=== PATIENT | female | born 1965 | race Caucasian/White ===

== ENCOUNTER 2018-04-26 12:46 | Observation (INO) ==
[2018-04-26] MEDS ORDERED: Morphine Inj 4 MG/ML Vial IV.PUSH PRN ×2 (15:53)
[2018-04-26] MEDS: Heparin - SQ 10,000 UNITS/ML Vial SQ SCH (20:32)
[2018-04-26] MEDS: Sod Chloride 0.9% Inj 1,000 ML IV.CONT SCH (20:33)
[2018-04-26 21:50] VITALS: RESP 16
[2018-04-26 22:26] LABS: Creatine Kinase 34 U/L (26-192)
[2018-04-27 04:52] VITALS: BP 116/77; PULSE 80; TEMP 97.4; O2SAT 96
[2018-04-27] MEDS: Sod Chloride 0.9% Inj 1,000 ML IV.CONT SCH (07:02)
[2018-04-27 07:08] LABS: Baso # (Auto) 0.1 th/mm3 (0.0-0.2); Eos # (Auto) 0.1 th/mm3 (0.0-0.4); Eos % (Auto) 1.4 % (0.0-4.0); Hematocrit 35.4 % (35.0-46.0); Hemoglobin 11.6 gm/dL (11.6-15.3); Lymph # (Auto) 1.8 th/mm3 (1.0-4.8); Lymph % (Auto) 24.7 % (9.0-44.0); Mean Corpuscular HGB Conc 32.8 % (32.0-36.0); Mean Corpuscular Volume 88.3 fL (80.0-100.0); Mean Platelet Volume 7.8 fL (7.0-11.0); Mono # (Auto) 0.5 th/mm3 (0.0-0.9); Mono % (Auto) 6.2 % (0.0-8.0); Neut # (Auto) 4.9 th/mm3 (1.8-7.7); Neut % (Auto) 66.7 % (16.0-70.0); Platelet Count 172 th/mm3 (150-450); Red Blood Count 4.01 mil/mm3 (4.00-5.30); White Blood Count 7.4 th/mm3 (4.0-11.0)
[2018-04-27 07:25] LABS: Chloride 111 meq/L (98-107); Sodium 146 meq/L (136-145)
[2018-04-27 07:28] LABS: Albumin 3.5 g/dL (3.4-5.0); Anion Gap 7 meq/L (5-15); Calcium 8.1 mg/dL (8.5-10.1); Carbon Dioxide 28.2 meq/L (21.0-32.0)
[2018-04-27 07:29] LABS: Blood Urea Nitrogen 11 mg/dL (7-18); Glucose,Random 83 mg/dL (74-106)
[2018-04-27 07:31] LABS: Alanine Aminotransferase 22 U/L (10-53)
[2018-04-27 07:32] LABS: Aspartate Aminotransferase 11 U/L (15-37); Glomerular Filtration Rate Greater Than 89 mL/min (>89)
[2018-04-27 07:33] LABS: Total Protein 6.3 g/dL (6.4-8.2)
[2018-04-27 07:34] LABS: Alkaline Phosphatase 91 U/L (45-117)
[2018-04-27] MEDS ORDERED: Aspirin 325 MG Tablet PO SCH (09:00)
[2018-04-27] MEDS: Heparin - SQ 10,000 UNITS/ML Vial SQ SCH (10:05)
--- NOTE | 2018-04-27 11:34 | P.HPIM ---
History of Present Illness Primary Care Physician: No Primary Care Physician History of Present Illness: Mrs. Zayas is a 53-year-old female. She has a long family history for myocardial infarction and has had a previous myocardial infarction herself. Yesterday at work she was having recurrent episodes of chest pain with radiation down her left arm. She felt chest pressure and eventually came into the emergency department. Cardiac enzymes have remained stable throughout her stay here. She has resolution of her chest pain. No acute complaints today. Stress test pending. - Diagnosis (1) Chest pain (2) Old HI (myocardial infarction) (3) Hyperlipidemia Review of Systems Constitutional: No fevers, no chills no night sweats, no fatigue, no weakness Eyes: No eye pain, no blurry vision, no loss of vision ENT: No sore throat, no ear pain, no rhinorrhea Cardiovascular: chest pain, no tachycardia, no palpitations, no shortness of breath, no syncope Respiratory: No wheezing, no cough, no shortness of breath Gastrointestinal: No abdominal pain, no black tarry stools, no bright red blood per rectum, no vomiting, no diarrhea Musculoskeletal: No joint pain, no muscle cramps, no stiffness Integumentary: No rash, no ulcers, no drainage Neurologic: No sensory loss, no loss of motor function, no dizziness Psychiatric: No behavioral changes, no hallucinations, no suicidal ideations [facility] - History History Provided By: Patient - Medical History Medical History: Medical History (Last Updated 04/26/18 @ 12:59 by Diana Gaspar RN) Arthritis High cholesterol Migraine - Surgical History Surgical History: Surgical History (Last Updated 04/26/18 @ 12:59 by Diana Gaspar RN) H/O cardiac catheterization - Family History Family History: Family History (Last Updated 04/27/18 @ 11:31 by Elijah Abad MD) Other Coronary artery disease Myocardial infarction - Tobacco History Second Hand Smoke Exposure: No Smoking Status: Never smoker - Alcohol History How Often Do You Have a Drink Containing Alcohol: Never - Substance Use History Substance History: No History of Abuse Medications and Allergies Active Medications: Active Medications Aspirin (Aspirin) 325 mg PO DAILY [facility] Last Admin: 04/27/18 10:05 Dose: 325 mg Atorvastatin Calcium (Lipitor) 40 mg PO HS JESSICA Heparin Sodium (Porcine) (Heparin Inj) 5,000 units SQ Q12HR [facility] Last Admin: 04/27/18 10:05 Dose: 5,000 units Sodium Chloride (Ns Inj) 1,000 mls @ 75 mls/hr IV.CONT .[id number] [facility] Last Infusion: 04/27/18 10:08 Dose: 75 mls/hr Morphine Sulfate (Morphine Inj) 2 mg IV.PUSH Q4H PRN PRN Reason: Pain 3 to 6 Last Admin: 04/26/18 20:47 Dose: 2 mg Morphine Sulfate (Morphine Inj) 4 mg IV.PUSH Q4H PRN PRN Reason: Pain 7 to 10 Nitroglycerin (Nitrostat Sl) 0.4 mg SL Q5M PRN PRN Reason: CHEST PAIN Non-Formulary Medication (Sertraline [Zoloft]) 25 mg PO [facility] Sodium Chloride (Ns Flush) 2 ml IV.FLUSH BID [facility] Last Admin: 04/27/18 10:06 Dose: 2 ml Sodium Chloride (Ns Flush) 2 ml IV.FLUSH PRN PRN PRN Reason: FLUSH AFTER USING IV ACCESS Last Admin: 04/26/18 20:49 Dose: 2 ml Allergies Allergy/AdvReac Type Severity Reaction Status Date / Time Penicillins Allergy Hives Verified 04/26/18 12:59 Home Medications Medication Instructions Recorded Confirmed Type atorvastatin [Lipitor] 40 mg PO 04/26/18 04/27/18 History sertraline [Zoloft] 25 mg PO HS 04/26/18 04/27/18 History Voltaren HS 04/27/18 History aspirin 325 mg PO DAILY 04/27/18 04/27/18 History Exam Vital signs: Vital Signs 04/26/18 20:00 04/27/18 00:00 04/27/18 04:00 Temperature 97.1 F L 97.6 F 97.4 F L Pulse Rate 85 81 80 Respiratory Rate 16 16 16 Blood Pressure 131/72 115/66 116/77 Pulse Oximetry 98 97 96 Intake & Output 04/26/18 04/27/18 04/27/18 18:59 06:59 18:59 Weight 79.1 kg Other: Weight On Admission 79.1 kg Narrative: GENERAL: NAD, A&Ox3 HEAD: Normocephalic. NECK: Supple, trachea midline. No lymphadenopathy. EYES: No scleral icterus. No injection or drainage. CARDIOVASCULAR: Regular rate and rhythm without murmurs, gallops, or rubs. RESPIRATORY: Breath sounds equal bilaterally. No accessory muscle use. GASTROINTESTINAL: Abdomen soft, non-tender, nondistended. MUSCULOSKELETAL: No cyanosis, or edema. SKIN: Warm and dry. NEURO: No focal neurological deficits. Results - Labs CBC & Chem 7: 04/27/18 06:30 04/27/18 06:30 Labs: Short CBC 04/27/18 Range/Units 06:30 WBC 7.4 (4.0-11.0) th/mm3 Hgb 11.6 (11.6-15.3) gm/dL Hct 35.4 (35.0-46.0) % Plt Count 172 (150-450) th/mm3 BMP 04/27/18 06:30 Sodium 146 H Potassium 4.0 Chloride 111 H Carbon Dioxide 28.2 BUN 11 Creatinine 0.55 Calcium 8.1 L D Cardiac Enzymes 04/26/18 04/27/18 Range/Units 22:00 06:30 Total Creatine Kinase 34 (26-192) U/L Troponin I Less than 0.02 L Less than 0.02 L (0.02-0.05) ng/mL Liver Function 04/27/18 Range/Units 06:30 Total Bilirubin 0.4 (0.2-1.0) mg/dL AST 11 L (15-37) U/L ALT 22 (10-53) U/L Alkaline Phosphatase 91 (45-117) U/L Albumin 3.5 (3.4-5.0) g/dL Caprini VTE Risk Assessment Caprini VTE Risk Assessment: Moderate/High Risk (score >= 2) Caprini Risk Assessment Model: Point Value = 1 Point Value = 2 Point Value = 3 Point Value = 5 Age 41-60 Minor surgery BMI > 25 kg/m2 Swollen legs Varicose veins or History of unexplained or recurrent spontaneous Oral contraceptives or hormone replacement Sepsis (< 1 month) Serious lung disease, including pneumonia (< 1 month) Abnormal pulmonary function Acute myocardial infarction Congestive heart failure (< 1 month) History of inflammatory bowel disease Medical patient at bed rest Age 61-74 Arthroscopic surgery Major open surgery (> 45 min) Laparoscopic surgery (> 45 min) Malignancy Confined to bed (> 72 hours) Immobilizing plaster cast Central venous access Age >= 75 History of VTE Family history of VTE Factor V Leiden Prothrombin [id number] Lupus anticoagulant Anticardiolipin antibodies Elevated serum homocysteine Heparin-induced thrombocytopenia Other congenital or acquired thrombophilia Stroke (< 1 month) Elective arthroplasty Hip, pelvis, or leg fracture Acute spinal cord injury (< 1 month) Prophylaxis Regimen: Total Risk Factor Score Risk Level Prophylaxis Regimen 0-1 Low Early ambulation 2 Moderate Order ONE of the following: *Sequential Compression Device (SCD) *Heparin 5000 units SQ BID 3-4 Higher Order ONE of the following medications: *Heparin 5000 units SQ TID *Enoxaparin/Lovenox 40 mg SQ daily (WT < 150 kg, CrCl > 30 mL/min) *Enoxaparin/Lovenox 30 mg SQ daily (WT < 150 kg, CrCl > 10-29 mL/min) *Enoxaparin/Lovenox 30 mg SQ BID (WT < 150 kg, CrCl > 30 mL/min) AND/OR *Sequential Compression Device (SCD) 5 or more Highest Order ONE of the following medications: *Heparin 5000 units SQ TID (Preferred with Epidurals) *Enoxaparin/Lovenox 40 mg SQ daily (WT < 150 kg, CrCl > 30 mL/min) *Enoxaparin/Lovenox 30 mg SQ daily (WT < 150 kg, CrCl > 10-29 mL/min) *Enoxaparin/Lovenox 30 mg SQ BID (WT < 150 kg, CrCl > 30 mL/min) AND *Sequential Compression Device (SCD) Assessment and Plan - Assessment (1) Chest pain Code(s): R07.9 - Chest pain, unspecified Status: Acute (2) Old HI (myocardial infarction) Code(s): I25.2 - Old myocardial infarction Status: Acute (3) Hyperlipidemia Code(s): E78.5 - Hyperlipidemia, unspecified Status: Acute - Plan 53-year-old female admitted secondary to chest pain Chest pain Positive family history of myocardial infarction Old HI Negative evaluation for ACS Back enzymes remain stable Aspirin daily When necessary oxygen When necessary morphine for pain. When necessary nitroglycerin Follow on telemetry Chemical stress test ordered Hyperlipidemia Continue present treatment Follow as an outpatient DVT prophylaxis Heparin H&P: Quality - VTE Deep Vein Thrombosis/Pulmonary Embolism Present on Admission: No
[2018-04-27] MEDS ORDERED: Regadenoson Inj 0.4 MG/5 ML Syringe IV.PUSH ONE (14:41)
--- NOTE | 2018-04-27 16:06 | NM ---
EXAM DATE: 04/27/2018 2:13 PM EDT AGE/SEX: 53 years / Female INDICATIONS:Angina. . Left sided chest pain for one day. CLINICAL DATA: This is the patient's initial encounter. Patient reports that signs and symptoms have been present for 1 day and indicates a pain score of 5/10. MEDICAL/SURGICAL HISTORY: Myocardial infarction. . COMPARISON: No prior exams available for comparison. No external comparison. DOSE: 8.7 mCi Tc 99m Myoview at rest 26.3 mCi [id number] at stress 0.4 mg Lexiscan STRESS SYMPTOMS: Short of breath and flush. EJECTION FRACTION: 64 % TECHNIQUE: The patient underwent pharmacologic stress with infusion of prescribed dose. Continuous ECG tracing was monitored during stress. Gated SPECT imaging was performed after stress and conventi onal SPECT imaging was performed at rest. The examination was performed on a SPECT/CT scanner, both attenuation and non-corrected datasets were reviewed. FINDINGS: Distribution: The maximum perfused segment at stress is in the septal wall. Perfusion Study: There is a small fixed perfusion defect involving the anterior wall with no definite reversibility. As a summed stress score of 14. Gated Study: There are intact wall motion and wall thickening without hypokinetic or dyskinetic segm ents. The ejection fraction is calculated at 64%. RISK CATEGORY: Low (<1% Annual Motality Rate) CONCLUSION: 1. Normal wall motion and calculated ejection fraction. 2. Small fixed perfusion defect involving the anterior wall with no definite reversibility. There is normal wall motion in this region. This could represent a small area of infarction or artifact. Electronically signed by: Josué Padilla MD 04/27/2018 4:05 PM EDT
--- NOTE | 2018-04-27 17:09 | ECG ---
Date Performed: 04/26/2018 Time Performed: 22:19:19 PTAGE: 53 years EKG: Sinus rhythm NORMAL ECG PREVIOUS TRACING : 04/26/2018 16.35 Since the previous tracing, no significant change noted DOCTOR: Glenn Jansen Interpretating Date/Time 04/27/2018 17:06:59
--- NOTE | 2018-04-27 17:09 | ECG ---
Date Performed: 04/26/2018 Time Performed: 16:35:07 PTAGE: 53 years EKG: Sinus rhythm NORMAL ECG PREVIOUS TRACING : 04/26/2018 13.48 Since the previous tracing, no significant change noted DOCTOR: Glenn Jansen Interpretating Date/Time 04/27/2018 17:06:50
[2018-04-27] MEDS ORDERED: Sertraline 50 MG Tablet PO SCH (21:00)
== END 2018-04-27 17:42 | disposition home or self-care (01) ==
LOC: NEDDLT 18:51 → PH3 18:51
PROVIDERS: ADMIT Hospitalist; ATTEND Hospitalist